=== PATIENT | male | born 1965 | race Caucasian/White ===

== ENCOUNTER 2016-09-28 11:10 | Day surgery (SDC) | payer MEDICARE, OTHER ==
[2016-09-25 16:12] VITALS: BMI 21.9
[~2016-09-28 11:10] MED LIST: DEXAMETHASONE SOD PHOSPHATE 10 MG/ML 1 ML VIAL IV ONE; HYDROmorphone 1 MG/ML 1 ML SYRINGE IVP PRN; LACTATED RINGERS 1,000 ML IV SCH; MIDAZOLAM 2 MG/2 ML VIAL IV PRN; ONDANSETRON 4 MG/2 ML VIAL IVP ONE; SCOPOLAMINE 1.5MG/72HR PATCH TRANSDERM ONE; ceFAZolin 2 GM in SODIUM CHLORIDE 0.9% 100 ML IVPB ONE
[2016-09-28] MEDS ORDERED: LIDOCAINE 1% 20 ML VIAL (10MG/ML) FOR IV START INTRADERMA ONE (12:09)
[2016-09-28] MEDS ORDERED: PROPOFOL 10 MG/ML 20 ML VIAL IV ONE (12:16)
[2016-09-28] MEDS ORDERED: MIDAZOLAM 2 MG/2 ML VIAL ONE (12:16)
[2016-09-28] MEDS ORDERED: fentaNYL (PF) 50 MCG/ML 2 ML AMP ONE (12:16)
[2016-09-28] MEDS ORDERED: SENNOSIDES-DOCUSATE SODIUM 1 EACH TAB PO PRN (12:33)
[2016-09-28] MEDS ORDERED: HYDROmorphone 1 MG/ML 1 ML SYRINGE IVP PRN ×2 (12:33)
[2016-09-28] MEDS ORDERED: HYDROcodone/APAP 5-325MG 1 EACH TAB PO PRN (12:33)
[2016-09-28] MEDS ORDERED: diphenhydrAMINE 25 MG CAP PO PRN (12:33)
[2016-09-28] MEDS ORDERED: LACTATED RINGERS 1,000 ML IV ONE (13:36)
--- NOTE | 2016-09-28 13:54 | FL ---
EXAMINATION TYPE: FL guidance operating room, XR foot limited LT DATE OF EXAM: 09/28/2016 1:43 PM CLINICAL HISTORY: Left foot surgery first toe TECHNIQUE: Fluoroscopy. COMPARISON: None. FINDINGS: Fluoroscopic guidance was provided during open reduction internal fixation procedure perfo rmed by Dr. Mccullough. A total of 7 seconds of fluoroscopic time was utilized during the procedure an d 2 spot intraoperative images are acquired. The 2 intraoperative views acquired show placement of fixating nail and volar fixating plate at first metatarsophalangeal joint where there is joint space loss and marginal spurring present. IMPRESSION: As Above.
[2016-09-28 14:06] VITALS: TEMP 98.1
--- NOTE | 2016-09-28 14:11 | P.OP ---
Date of Procedure: 09/28/16 Preoperative Diagnosis: Left first MTP arthritis Postoperative Diagnosis: Left first MTP arthritis, end-stage Procedure(s) Performed: Left first MTP arthrodesis Implants: Michela Variax Plate and 2.7 lag screw Anesthesia: spinal Surgeon: Julian Mccullough Estimated Blood Loss (ml): 10 IV fluids (ml): 1,000 Condition: stable Disposition: PACU Indications for Procedure: The patient is a 51-year-old male with a long-standing history of left first MTP arthritis. He has failed extensive nonsurgical treatment including activity modification, anti-inflammatory medications, intra-articular injections , orthotics, and shoe modification. He presented to the office and had x-rays which showed end-stage arthritis of the first MTP joint. He had pain throughout his limited arc of motion at the first MTP joint. We discussed surgery including cheilectomy versus fusion. Due to the patient's end-stage arthritis as well as pain throughout his arc of motion a recommended a first MTP arthrodesis. We also discussed continued nonoperative treatment but he declined saying he had been through a long course of over a year of nonoperative management. The patient is a former smoker but has quit. Doesn't potential risks and Patient's of surgery including but not limited to risk of anesthesia, risk of superficial infection, risk of deep infection, risk of damage to local sensory nerves resulting attempt or permanent numbness, risk of intraoperative fracture, risk of postoperative fracture, risk of symptomatically hardware, risk of nonunion of the arthrodesis site, risk of malunion of the arthrodesis site, risk of difficulty with shoewear, risk of symptomatically hardware, risk of adjacent joint arthritis, risk of delayed wound healing, risk of wound necrosis, risk of necrosis the toe requiring amputation, generalized to satisfaction with surgery, and possibly loss of limb or life. The patient understands these risks and provided his verbal and written consent to go forward with surgery. He also understands that he is at a higher risk of having Occasional if he starts to smoke again. Description of Procedure: I met the patient in preoperative holding and the correct left leg was marked with my initials. All the patient's questions were answered and his consent was reviewed. The patient was then brought back to the operating room upon entering the operating room a spinal anesthetic was administered. The patient was then transferred to the operating room table and positioned supine. All bony prominences were well-padded. A tourniquet was applied to the proximal aspect the left thigh. Addicks. A bone foam ramp was placed under his left buttock internally rotating the leg. The patient's leg was then prepped and draped in the standard sterile fashion. Prior to starting surgery timeout was performed identifying the correct patient, operative extremity, and procedure. The patient's leg was then elevated, exsanguinated with an Esmarch bandage and the tourniquet was inflated to 250 mmHg. A longitudinal incision was made over the dorsal aspect of the first MTP joint. Dissection was carried down carefully through subcutaneous tissue to the sheath of the EHL tendon. The EHL tendon sheath was incised and the EHL tendon was retracted laterally. The capsule was then incised longitudinally in line with the skin incision. On entering the joint there were large osteophytes off of the dorsal first metatarsal and base of the proximal phalanx. There were multiple loose bodies within the joint. The joint had full-thickness cartilage loss both on the first metatarsal head and proximal phalanx base. A Rongeur was used to carefully contour the metatarsal head and base of the proximal phalanx. A K wire was then placed down the central axis the first metatarsal and a cup reamer was used to remove the remaining articular cartilage. A curet was used to remove any remaining cartilage and the K wire was then used to perforate the subchondral plate to help facilitate fusion. The K wire was then placed down the central access of the proximal phalanx. A cone-shaped reamer was then used to remove the remaining articular cartilage. A curet was used to completely denude all remaining cartilage in the K wire was used to perforate the subchondral bone to facilitate fusion. The wound was then copiously irrigated. I then positioned the joint for fusion in slight valgus and dorsiflexion. Once the joint was pinned in place I used a flat plate to make sure that the toe was sitting just off the plate, its rotation was at neutral, and it was not impinging on the second toe. C-arm was then brought in to verify position of the pinned first MTP joint. Once I was happy with the joint I placed a 2.7 mm lag screw across the joint. A 2.7 drill bit was used to create a gliding hole in the medial head of the first metatarsal and a 2.0 drill bit was used to create a threaded hole in the base of the proximal phalanx. A fully threaded 2.7 mm screw was placed across the joint generating excellent compression. The K wire was removed and the joint was held solid. Fluoroscopy showed the screw neck supple position. A 6-hole plate was then placed over the dorsal aspect of the first MTP joint. Two 2.7 screws were placed in the base the proximal phalanx and three 2.7 screws were placed in the first metatarsal. C-arm was then brought in to take final x-rays shots. Hardware appeared to be in acceptable position as well as the arthrodesis site. The wound was again copiously irrigated. The capsule was closed using a running 0 Vicryl stitch. The deep subcu was reapproximated using 2-0 Vicryl. The skin was closed using interrupted 3-0 nylon horizontal mattress stitches. The tourniquet was let down for total tourniquet time 60 minutes. The toe pinked up. After the incision was closer verified that all instrument sponge and sharp counts were correct. [place] stretchy Steri-Strips were placed between the stitches. A sterile dressing consisting of Betadine soaked Adaptic 4 x 4's and web roll was applied. The drapes were then taken down and a bulky Maloney type splint was placed. The patient was then transferred from the operating table to the [facility] and brought to PACU of entire the procedure well. Plan: The patient can discharge home as an outpatient. He is to remain strictly nonweightbearing on his operative leg in a bulky Maloney splint. He is to keep his splint clean and dry. He'll follow-up in the office in 2 weeks. A pin for [place] for pain and aspirin for DVT prophylaxis.
[2016-09-28 18:40] VITALS: RESP 18
[2016-09-28 18:41] VITALS: BP 122/72; PULSE 63
== END 2016-09-28 20:00 | disposition home or self-care (01) ==
LOC: OR 11:10
PROVIDERS: ATTEND Orthopaedic Surgery
DX: M13.872 Other specified arthritis, left ankle and foot (principal); M25.775 Osteophyte, left foot; M24.08 Loose body, other site; I10 Essential (primary) hypertension; F32.9 Major depressive disorder, single episode, unspecified; J44.9 Chronic obstructive pulmonary disease, unspecified; J43.9 Emphysema, unspecified; Z87.891 Personal history of nicotine dependence; M79.7 Fibromyalgia; Z79.899 Other long term (current) drug therapy
CPT/HCPCS: 73620; 28750; J2250; J1100; J0690; J2405; J3010; J2704

== ENCOUNTER 2017-01-01 12:19 | Emergency (ER) | payer MEDICARE, OTHER ==
[2017-01-01] MEDS ORDERED: ONDANSETRON 4 MG/2 ML VIAL IVP STA (12:45)
[2017-01-01] MEDS ORDERED: SODIUM CHLORIDE 0.9% 1,000 ML IV STA (12:45)
[2017-01-01] MEDS ORDERED: SODIUM CHLORIDE 0.9% 500 ML IV STA (12:45)
[2017-01-01] MEDS ORDERED: FAMOTIDINE 20 MG/2 ML VIAL IV STA (12:45)
--- NOTE | 2017-01-01 12:47 | ED ---
Nausea/Vomiting/Diarrhea HPI - General Chief complaint: Nausea/Vomiting/Diarrhea Stated complaint: Vomiting, Fever Time Seen by Provider: 01/01/17 12:33 Source: patient, RN notes reviewed Mode of arrival: wheelchair Limitations: no limitations - History of Present Illness Initial comments: 51-year-old male presents emergency Department chief complaint of nausea vomiting. Patient states it started this morning after eating some raspberries. Patient states that he has not felt well over the last couple days states that his stomach has been upset. 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 Patient states she stepped in a while ago. Patient denies chest pain , shortness breath, fever, chills. Patient denies any diarrhea or constipation. Denies any dysuria or hematuria. Patient had no contacts with some symptoms. - Related Data Home Medications Medication Instructions Recorded Confirmed Atorvastatin [Lipitor] 10 mg PO DAILY 07/09/16 01/01/17 HYDROcodone/APAP 10-325MG [Elmer 1 tab PO 5XD PRN 07/09/16 01/01/17 10-325] Losartan [Cozaar] 25 mg PO DAILY 07/09/16 01/01/17 Metoprolol Succinate [Toprol XL] 25 mg PO DAILY 07/09/16 01/01/17 Naproxen 500 mg PO Q12HR PRN 09/25/16 01/01/17 Aclidinium Carmel [Tudorza 1 puff PO RT-BID 01/01/17 01/01/17 Pressair] Hydrochlorothiazide [Hydrodiuril] 25 mg PO DAILY 01/01/17 01/01/17 Sennosides-Docusate Sodium 1 tab PO DAILY 01/01/17 01/01/17 [Senokot-S] Tiotropium Carmel [Spiriva] 1 cap INHALATION RT-DAILY 01/01/17 01/01/17 amLODIPine BESYLATE [Norvasc] 5 mg PO DAILY 01/01/17 01/01/17 Allergies Allergy/AdvReac Type Severity Reaction Status Date / Time No Known Allergies Allergy Verified 01/01/17 12:31 Review of Systems ROS Statement: Those systems with pertinent positive or pertinent negative responses have been documented in the HPI. ROS Other: All systems not noted in ROS Statement are negative. Past Medical History Past Medical History: COPD, Hearing Disorder / Deafness, Hypertension, Musculoskeletal Disorder, Osteoarthritis (OA) Additional Past Medical History / Comment(s): emphysema, 3 spont pneumo's; ulcer History of Any Multi-Drug Resistant Organisms: None Reported Past Surgical History: Orthopedic Surgery, Tonsillectomy Additional Past Surgical History / Comment(s): RIGHT FOOT ,LEFT ARM Past Anesthesia/Blood Transfusion Reactions: No Reported Reaction Past Psychological History: No Psychological Hx Reported Smoking Status: Current some day smoker Past Alcohol Use History: None Reported Additional Past Alcohol Use History / Comment(s): STARTED SMOKING AT 19 QUIT 2016 SMOKED 1PPD Past Drug Use History: None Reported Additional Drug Use History / Comment(s): OCCASIONAL USE,HAS CARD - Past Family History Father Family Medical History: Cancer Sister(s) Family Medical History: Cancer Additional Family Medical History / Comment(s): LUNG CANCER General Exam Limitations: no limitations General appearance: alert, in no apparent distress Head exam: Present: atraumatic, normocephalic, normal inspection Neck exam: Present: normal inspection, full ROM. Absent: tenderness, meningismus, lymphadenopathy Respiratory exam: Present: normal lung sounds bilaterally. Absent: respiratory distress, wheezes, rales, rhonchi, stridor Cardiovascular Exam: Present: regular rate, normal rhythm, normal heart sounds. Absent: systolic murmur, diastolic murmur, rubs, gallop, clicks GI/Abdominal exam: Present: soft, tenderness (Mild diffuse), normal bowel sounds. Absent: distended, guarding, rebound, rigid Back exam: Absent: CVA tenderness (R), CVA tenderness (L) Course Vital Signs 01/01/17 01/01/17 01/01/17 12:27 13:10 13:58 Temperature 98.3 F 98.4 F Pulse Rate 57 L 52 L 56 L Respiratory 18 18 16 Rate Blood Pressure 184/94 185/86 168/83 O2 Sat by Pulse 100 94 L 94 L Oximetry 01/01/17 14:28 Temperature Pulse Rate 78 Respiratory 18 Rate Blood Pressure 205/97 O2 Sat by Pulse 96 Oximetry Medical Decision Making - Medical Decision Making 51-year-old male present emergency from for nausea vomiting. Patient follow-up within normal. Patient's is slightly improved after Zofran but will be given additional Reglan. Patient will be discharged with Zofran at home. Patient also has a viral GI illness. Patient was also given his blood pressure medication as he has not taken this morning and is hypertensive. - Lab Data Result diagrams: 01/01/17 13:00 01/01/17 13:00 Lab Results 01/01/17 01/01/17 01/01/17 Range/Units 13:00 13:00 14:03 WBC 10.3 (3.8-10.6) k/uL RBC 4.48 (4.30-5.90) m/uL Hgb 14.4 (13.0-17.5) gm/dL Hct 43.9 (39.0-53.0) % MCV 98.0 (80.0-100.0) fL MCH 32.1 (25.0-35.0) pg MCHC 32.8 (31.0-37.0) g/dL RDW 12.6 (11.5-15.5) % Plt Count 244 (150-450) k/uL Neutrophils % 87 % Lymphocytes % 10 % Monocytes % 2 % Eosinophils % 0 % Basophils % 0 % Neutrophils # 9.0 H (1.3-7.7) k/uL Lymphocytes # 1.0 (1.0-4.8) k/uL Monocytes # 0.2 (0-1.0) k/uL Eosinophils # 0.0 (0-0.7) k/uL Basophils # 0.0 (0-0.2) k/uL Sodium 139 (137-145) mmol/L Potassium 4.6 (3.5-5.1) mmol/L Chloride 106 (98-107) mmol/L Carbon Dioxide 26 (22-30) mmol/L Anion Gap 7 mmol/L BUN 14 (9-20) mg/dL Creatinine 0.68 (0.66-1.25) mg/dL Est GFR (MDRD) Af Amer >60 (>60 ml/min/1.73 sqM) Est GFR (MDRD) Non-Af >60 (>60 ml/min/1.73 sqM) Glucose 113 H (74-99) mg/dL Calcium 9.6 (8.4-10.2) mg/dL Total Bilirubin 0.7 (0.2-1.3) mg/dL AST 17 (17-59) U/L ALT 24 (21-72) U/L Alkaline Phosphatase 75 (38-126) U/L Total Protein 7.3 (6.3-8.2) g/dL Albumin 4.2 (3.5-5.0) g/dL Amylase 57 (30-110) U/L Lipase 85 (23-300) U/L Urine Color Yellow Urine Appearance Cloudy (Clear) Urine pH 7.5 (5.0-8.0) Ur Specific Alpha 1.020 (1.001-1.035) Urine Protein Trace H (Negative) Urine Glucose (UA) Negative (Negative) Urine Ketones 1+ H (Negative) Urine Blood Negative (Negative) Urine Nitrite Negative (Negative) Urine Bilirubin Negative (Negative) Urine Urobilinogen <2.0 (<2.0) mg/dL Ur Leukocyte Esterase Negative (Negative) Urine WBC <1 (0-5) /hpf Urine Mucus Moderate H (None) /hpf Disposition Clinical Impression: Nausea & vomiting Disposition: HOME SELF-CARE Condition: Stable Instructions: Acute Nausea and Vomiting (ED) Additional Instructions: Please return to the Emergency Department if symptoms worsen or any other concerns. Time of Disposition: 14:52
[2017-01-01 13:32] LABS: Basophils % (A) 0 %; CH 32.4; CHCM 33.2; Eosinophils % (A) 0 %; HCT 43.9 % (39.0-53.0); HDW 2.18; HGB 14.4 gm/dL (13.0-17.5); Luc # (Auto) 0.09; Luc % (Auto) 1; Lymphocytes % (A) 10 %; MCH 32.1 pg (25.0-35.0); MCHC 32.8 g/dL (31.0-37.0); Mean Platelet Volume 8.4; Monocytes # (A) 0.2 k/uL (0-1.0); Monocytes % (A) 2 %; Neutrophils % (A) 87 %; RBC 4.48 m/uL (4.30-5.90); RDW 12.6 % (11.5-15.5); WBC 10.3 k/uL (3.8-10.6); WBC (Perox) 10.55
--- NOTE | 2017-01-01 13:33 | XR ---
EXAMINATION TYPE: XR KUB DATE OF EXAM: 01/01/2017 1:15 PM COMPARISON: NONE HISTORY: Pain TECHNIQUE: Single supine KUB image of the abdomen is obtained FINDINGS: Small bowel demonstrates no evidence for dilatation or air fluid levels. Gas and fecal material is seen in non-distended colon. No convincing evidence for pneumoperitoneum. No unusual calcifications. The lung bases are clear. The osseous structures are intact. IMPRESSION: 1. Overall nonobstructive bowel gas pattern.
[2017-01-01 13:41] LABS: ALT 24 U/L (21-72); AST 17 U/L (17-59); Alkaline Phosphatase 75 U/L (38-126); Amylase 57 U/L (30-110); Anion Gap 7 mmol/L; Blood Urea Nitrogen 14 mg/dL (9-20); Calcium 9.6 mg/dL (8.4-10.2); Carbon Dioxide 26 mmol/L (22-30); Chloride 106 mmol/L (98-107); Glucose 113 mg/dL (74-99); Non-African American GFR(MDRD) >60 (>60 ml/min/1.73 sqM); Potassium 4.6 mmol/L (3.5-5.1); Sodium 139 mmol/L (137-145); Total Bilirubin 0.7 mg/dL (0.2-1.3); Total Protein 7.3 g/dL (6.3-8.2)
[2017-01-01] MEDS ORDERED: METOPROLOL SUCCINATE (ER) 25 MG TAB.ER.24H PO STA (14:30)
[2017-01-01 14:34] LABS: Appearance,Urine Cloudy (Clear); Bilirubin,Urine Negative (Negative); Glucose,Urine (UA) Negative (Negative); Ketones,Urine 1+ (Negative); Leukocyte Esterase,Urine Negative (Negative); Mucus,Urine Moderate /hpf; Nitrite,Urine Negative (Negative); PH, Urine 7.5 (5.0-8.0); Particle Count 21388; Protein,Urine Trace (Negative); UA Billing (MACRO vs. MICRO) MICRO; Urobilinogen,Urine <2.0 mg/dL (<2.0); WBC,Urine <1 /hpf (0-5)
[2017-01-01] MEDS ORDERED: SODIUM CHLORIDE 0.9% 500 ML IV ONE (14:50)
[2017-01-01] MEDS ORDERED: METOCLOPRAMIDE 5 MG/ML 2 ML VIAL IVP STA (14:50)
[2017-01-01 15:27] VITALS: RESP 16
[2017-01-01 15:40] VITALS: BP 161/70; PULSE 65; TEMP 97.9
== END 2017-01-01 15:40 | disposition home or self-care (01) ==
LOC: EC 12:19
DX: R11.2 Nausea with vomiting, unspecified (principal); R19.7 Diarrhea, unspecified; R50.9 Fever, unspecified; I10 Essential (primary) hypertension; J44.9 Chronic obstructive pulmonary disease, unspecified; Z87.891 Personal history of nicotine dependence; Z79.899 Other long term (current) drug therapy
CPT/HCPCS: 36415; 80053; 82150; 83690; 85025; 81001; 74000; 99284; 96374; 96375 ×2; 96361 ×3; J2765; J2405

== ENCOUNTER → 2017-10-14 | Outpatient (CLI) | payer MEDICARE, OTHER ==
--- NOTE | 2017-10-14 13:33 | MR ---
EXAMINATION TYPE: MR shoulder RT wo con DATE OF EXAM: 10/14/2017 COMPARISON: NONE HISTORY: Right shoulder pain TECHNIQUE: Multiplanar, multisequence imaging of the right shoulder is performed without contrast. FINDINGS: Rotator Cuff: There is a 9 mm through thickness partial tear involving supraspinatus tendon near the insertion with greater involvement of the anterior fibers. There is intrasubstance signal near the insertion of the infraspinatus tendon. No retraction. Finding s compatible with tendinosis. Partial intrasubstance tear not excluded. No through thickness tear or retraction. Subscapularis tendon appears intact. Acromioclavicular Joint: Hypertrophic and degenerative arthropathy of the AC joint. No definite impin gement. Glenohumeral Joint: Glenohumeral ligaments are intact. No sizable joint effusion. Labrum: There is a tear of the anterior superior labrum. The appears to be evidence of a Javier compl ex. There is some redundancy of the middle glenohumeral ligament. Biceps Tendon: The long head of biceps is in normal location within bicipital groove. Bone marrow signal: Abnormal signal involving the head of the humerus compatible with benign cystic c hange likely related to chronic arthropathy. Other: There is a intramuscular lipoma involving the deltoid muscle anterolaterally measuring 0.7 x 1 .8 x 5.2 cm.. IMPRESSION: 1. Partial through thickness tear measuring 9 mm with a greater involvement of the anterior fibers melgoza praspinatus tendon at its insertion with no retraction. 2. Tendinosis infraspinatus tendon. 3. Intramuscular lipoma of the deltoid muscle measuring 0.7 x 1.8 x 5.2 cm. 4. There is a tear of the anterior superior labrum. The appears to be evidence of a [place] complex. T here is some redundancy of the middle glenohumeral ligament. Correlate clinically.
== END | disposition home or self-care (01) ==
LOC: RADMRIMAIN 12:30
PROVIDERS: ATTEND Orthopaedic Surgery
DX: M75.111 Incomplete rotator cuff tear or rupture of right shoulder, not specified as traumatic (principal); S43.401A Unspecified sprain of right shoulder joint, initial encounter; M75.81 Other shoulder lesions, right shoulder; D17.9 Benign lipomatous neoplasm, unspecified
CPT/HCPCS: 73030; 99204

== ENCOUNTER → 2019-05-26 | Outpatient (CLI) | payer MEDICARE ==
--- NOTE | 2019-05-26 09:46 | CT ---
EXAMINATION TYPE: CT abdomen pelvis w con DATE OF EXAM: 05/26/2019 COMPARISON: 07/09/2016 HISTORY: Unspecified abdominal pain CT DLP: 962 mGycm CONTRAST: CT scan of the abdomen and pelvis is performed with Oral Contrast and with IV Contrast, patient injec charito with 100 ml mL of Isovue 300. FINDINGS: LUNG BASES-: No visible nodule. No infiltrate. LIVER/GB: No calcified gallstones. No space occupying hepatic lesion. Biliary tree is of normal ca liber. PANCREAS: No inflammation. No distinct mass. SPLEEN: No splenic enlargement. No lesion seen. ADRENALS: No nodule. No thickening. KIDNEYS/BLADDER: No hydronephrosis. No nephrolithiasis. No distinct renal mass. Urinary bladder g rossly unremarkable. BOWEL: Normal appendix. Normal bowel caliber. No inflammation. GENITAL ORGANS: No gross abnormality. LYMPH NODES: No greater than 1cm abdominal or pelvic lymph nodes are appreciated. AORTA: No significant abnormality. OSSEOUS STRUCTURES: No significant abnormality is seen. OTHER: No significant additional abnormality is seen. IMPRESSION: 1. No distinct abnormality to account for the patient's symptoms.
== END | disposition home or self-care (01) ==
LOC: RADCTMAIN 07:35
PROVIDERS: ATTEND Internal Medicine Gastroenterology
DX: R10.9 Unspecified abdominal pain (principal)
CPT/HCPCS: 74177; Q9967

== ENCOUNTER → 2020-11-18 | Outpatient (CLI) | payer MEDICARE ==
[2020-11-19 01:06] LABS: African American GFR (CKD) 97.1 (60.0-200.0); Albumin 4.6 g/dL (3.80-4.90); Albumin/Globulin Ratio 2.09 (1.60-3.17); Anion Gap 8.3 mmol/L (4.00-12.00); Calcium 9.6 mg/dL (8.7-10.3); Carbon Dioxide 26.7 mmol/L (21.6-31.8); Chol/HDL Ratio 2.22; Globulin 2.2 g/dL (1.6-3.3); LDL Cholesterol,Calculated 65.6 mg/dL (0.0-131.0); Non-African American GFR(CKD) 83.8 (60.0-200.0); Total Bilirubin 0.5 mg/dL (0.2-1.2); Total Protein 6.8 g/dL (6.2-8.2); VLDL Calculation 12.4 mg/dL (5.00-40.00)
== END | disposition home or self-care (01) ==
LOC: LABWHC1 15:35
PROVIDERS: ATTEND Internal Medicine Clinical Cardiac Electrophysiology
DX: I10 Essential (primary) hypertension (principal); E78.5 Hyperlipidemia, unspecified
CPT/HCPCS: 36415; 80053; 80061; 84443

== ENCOUNTER → 2021-05-03 | Outpatient (CLI) | payer MEDICARE ==
--- NOTE | 2021-05-04 11:50 | CTL ---
EXAMINATION TYPE: CT Low Dose Lung DATE OF EXAM ORDERED: 05/03/2021 HISTORY: History of smoking and is quitting for good. Lung cancer screening CT DLP: 81.[address] CTDI: 2.0 mGy Automated exposure control for dose reduction was used. SCREENING VISIT: Initial COMPARISON: None TECHNIQUE: Low dose computed tomography scan was performed through the chest at 1 mm thick sections a nd reconstructed images in the coronal plane at [address] DIAGNOSTIC QUALITY: Satisfactory FINDINGS: LUNG NODULES: Present, detailed below: Posterior lung apex scarring may be present. There is a 0.6 cm nodule may be at the right apex. Series 4 image 27. LUNGS COPD: Severity: Mild Fibrosis: Severity: None Lymph nodes: None Other findings: None RIGHT PLEURAL SPACE: Effusion: None Calcification: None Thickening: None Pneumothorax: None LEFT PLEURAL SPACE: Effusion: None Calcification: None Thickening: None Pneumothorax: None HEART: Heart Size: Normal Coronary calcification: Minimal Pericardial effusion: None OTHER FINDINGS: Upper abdomen: Normal Bony thorax: Normal Supraclavicular region: Normal Other: Ascending thoracic aorta at the level the main pulmonary artery measures 4.0 cm. The main pul monary artery at the bifurcation measures 2.9 cm. IMPRESSION: 1. 0.6 cm nodule right apex may be related to the suspected scarring at the lung apices. Follow-up CT chest in 6 months is recommended. FOLLOW UP CT CHEST RECOMMENDATION: Yes, CT chest [address] LUNG RAD: Lung-Rad 3 Probably Benign
== END | disposition home or self-care (01) ==
LOC: RADCTMAIN 13:25
PROVIDERS: ATTEND Family Medicine
DX: R91.1 Solitary pulmonary nodule (principal); Z87.891 Personal history of nicotine dependence
CPT/HCPCS: 71271

== ENCOUNTER → 2022-01-24 | Outpatient (CLI) | payer MEDICARE ==
--- NOTE | 2022-01-25 07:08 | CTL ---
EXAMINATION TYPE: CT Low Dose Lung DATE OF EXAM ORDERED: 01/24/2022 HISTORY: Long-term tobacco use. Lung cancer screening CT DLP: 598.[address] CTDI: 7.20 mGy Automated exposure control for dose reduction was used. SCREENING VISIT: First step to baseline COMPARISON: Prior study 2020 TECHNIQUE: Low dose computed tomography scan was performed through the chest at 1 mm thick sections a nd reconstructed images in multiple planes at 1 mm and [address] DIAGNOSTIC QUALITY: Satisfactory FINDINGS: LUNG NODULES: Present, detailed below: Scattered small nodules redemonstrated. For reference there is stable 4 x 3 mm peripheral anterior left upper lung nodule axial image 76 and peripheral 5 x 3 mm right upper lobe nodule axial image 79. Multiple similar size and smaller nodules in the bilateral upper lungs are present, some are calcified. No new or enlarging greater than 5 mm noncalcified pulmonary nodules. LUNGS: COPD: Severity: [id number] Fibrosis: Severity: Moderate Biapical redemonstrated Lymph nodes: No new greater than 1 cm Other findings: None RIGHT PLEURAL SPACE: Effusion: None Calcification: None Thickening: None Pneumothorax: None LEFT PLEURAL SPACE: Effusion: None Calcification: None Thickening: None Pneumothorax: None HEART: Heart Size: Normal Coronary Calcification: Mild to moderate Pericardial Effusion: None OTHER FINDINGS: Upper abdomen: None Bony thorax: None Supraclavicular region: None Other: There is 4.2 cm ascending aortic aneurysm axial image 36 series 12. Prominent but subcentimete r bilateral axillary lymph nodes redemonstrated. IMPRESSION: Mild/moderate emphysematous change with scattered stable small predominantly upper lung n odules. CT LUNG RAD AND CT CHEST RECOMMENDATION: Lung-Rad 2 Benign Appearance or Behavior: Continue annual sc reening with LDCT in 12 months. S Modifier (other clinically significant findings): S There is 4.2 cm ascending thoracic aortic aneurysm noted.
== END | disposition home or self-care (01) ==
LOC: RADCTMAIN 18:01
PROVIDERS: ATTEND Family Medicine
DX: Z12.2 Encounter for screening for malignant neoplasm of respiratory organs (principal); Z87.891 Personal history of nicotine dependence
CPT/HCPCS: 71271

== ENCOUNTER 2024-08-08 23:06 | Emergency (ER) | payer MEDICARE ==
[2024-08-08 23:13] VITALS: PULSE 88; TEMP 97.6
[2024-08-09] MEDS: BACITRACIN OINT 1 EACH PACKET TOPICAL ONE (00:27)
[2024-08-09] MEDS: KETOROLAC 15 MG/ML 1 ML VIAL IM STA (00:27)
[2024-08-09] MEDS: HYDROcodone/APAP 5-325MG 1 EACH TAB PO STA ×2 (00:29→02:25)
[2024-08-09] MEDS: PROPARACAINE 0.5% OPHTH DROPS 15 ML BTL BOTH EYES STA (01:57)
[2024-08-09] MEDS: FLUORESCEIN STRIPS 1 MG STRIP BOTH EYES ONE (01:58)
[2024-08-09 02:12] VITALS: BP 159/106; RESP 19
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
[2024-08-09] MEDS: traMADol 50 MG STARTER PACK 3 TAB BTL PO STA (02:26)
[2024-08-09] MEDS: ERYTHROMYCIN 5 MG/GM OPHTH OINT 1 GM TUBE BOTH EYES STA (02:30)
== END 2024-08-09 02:35 | disposition home or self-care (01) ==
LOC: EC 23:06
DX: T23.161A Burn of first degree of back of right hand, initial encounter (principal); T20.14XA Burn of first degree of nose (septum), initial encounter; T20.17XA Burn of first degree of neck, initial encounter; T31.0 Burns involving less than 10% of body surface; F17.200 Nicotine dependence, unspecified, uncomplicated; X08.8XXA Exposure to other specified smoke, fire and flames, initial encounter
CPT/HCPCS: 16000; 99283; 96372; J1885

== ENCOUNTER 2024-11-27 02:01 | Emergency (ER) | payer MEDICARE ==
[2024-11-27 02:07] VITALS: TEMP 97.4
[2024-11-27] MEDS: KETOROLAC 15 MG/ML 1 ML VIAL IVP STA (02:24)
[2024-11-27] MEDS: LORazepam 2 MG/ML INJ IV STA (02:26)
--- NOTE | 2024-11-27 03:07 | ED ---
Upper Extremity HPI - General Chief Complaint: Extremity Injury, Upper Stated Complaint: R Shoulder Pain Time Seen by Provider: 11/27/24 02:09 Source: patient Mode of arrival: ambulatory - History of Present Illness Initial Comments: 59-year-old male presenting with chief complaint of right shoulder pain. Patient has history of shoulder pain. He denies any new injury or trauma. He reports that he has not followed with an orthopedic doctor in several years as he disagreed with the last one that he saw. He takes [place] at home regularly for his pain but states that today they were not cutting it. He also reports anxiety. He reports that he has had multiple stressful life events recently such as the of his best friend and the of his dog. He is having some difficulty breathing tonight. No chest pain. No lower extremity swelling. No vomiting or abdominal pain. He does admit to some nausea. Patient is a smoker, states that he smokes between 2 and 5 cigarettes/day. - Related Data Home Medications Medication Instructions Recorded Confirmed Atorvastatin [Lipitor] 10 mg PO DAILY 07/09/16 01/01/17 HYDROcodone/APAP 10-325MG [[place] 1 tab PO 5XD PRN 07/09/16 01/01/17 10-325] Losartan [Cozaar] 25 mg PO DAILY 07/09/16 01/01/17 Metoprolol Succinate [Toprol XL] 25 mg PO DAILY 07/09/16 01/01/17 Naproxen 500 mg PO Q12HR PRN 09/25/16 01/01/17 Aclidinium [place] [Tudorza 1 puff PO RT-BID 01/01/17 01/01/17 Pressair] Sennosides-Docusate Sodium 1 tab PO DAILY 01/01/17 01/01/17 [Senokot-S] Tiotropium [place] [Spiriva] 1 cap INHALATION RT-DAILY 01/01/17 01/01/17 amLODIPine BESYLATE [Norvasc] 5 mg PO DAILY 01/01/17 01/01/17 hydroCHLOROthiazide [Hydrodiuril] 25 mg PO DAILY 01/01/17 01/01/17 Previous Rx's Medication Instructions Recorded Erythromycin Ophth Oint (1 gm) 1 applic BOTH EYES QID 7 Days #2 08/09/24 [Ilotycin Ophth Oint (1 gm)] gram Allergies Allergy/AdvReac Type Severity Reaction Status Date / Time No Known Allergies Allergy Verified 11/27/24 02:07 Review of Systems ROS Statement: Those systems with pertinent positive or pertinent negative responses have been documented in the HPI. ROS Other: All systems not noted in ROS Statement are negative. Past Medical History Past Medical History: COPD, Hearing Disorder / Deafness, Hypertension, Musculoskeletal Disorder, Osteoarthritis (OA) Additional Past Medical History / Comment(s): emphysema, 3 spont pneumo's; ulcer History of Any Multi-Drug Resistant Organisms: None Reported Past Surgical History: Orthopedic Surgery, Tonsillectomy Additional Past Surgical History / Comment(s): RIGHT FOOT ,LEFT ARM Past Anesthesia/Blood Transfusion Reactions: No Reported Reaction Past Psychological History: No Psychological Hx Reported Smoking Status: Current every day smoker Past Alcohol Use History: None Reported Past Drug Use History: None Reported - Past Family History Father Family Medical History: Cancer Sister(s) Family Medical History: Cancer Additional Family Medical History / Comment(s): LUNG CANCER General Exam Limitations: no limitations General appearance: alert, in no apparent distress Head exam: Present: atraumatic, normocephalic, normal inspection Eye exam: Present: normal appearance, EOMI Neck exam: Present: normal inspection. Absent: meningismus Respiratory exam: Present: normal lung sounds bilaterally. Absent: respiratory distress, wheezes, rales, rhonchi, stridor Cardiovascular Exam: Present: regular rate, normal rhythm, normal heart sounds. Absent: systolic murmur, diastolic murmur, rubs, gallop, clicks Right Shoulder Exam: Present: normal inspection, tenderness. Absent: full ROM, swelling, deformity Neurological exam: Present: alert, oriented X3 Psychiatric exam: Present: normal affect, normal mood Skin exam: Present: warm, dry, normal color Course Vital Signs 11/27/24 11/27/24 02:02 03:59 Temperature 97.4 F L Pulse Rate 65 90 Respiratory 18 17 Rate Blood Pressure 151/95 137/97 O2 Sat by Pulse 100 98 Oximetry Medical Decision Making - Medical Decision Making Was pt. sent in by a medical professional or institution (, PA, SENIOR RESEARCH PROJECT MANAGER, urgent care, hospital, or detention...) When possible be specific @ -No Did you speak to anyone other than the patient for history (EMS, parent, family, police, friend...)? What history was obtained from this source @ -Daughter Did you review nursing and triage notes (agree or disagree)? Why? @ -I reviewed and agree with nursing and triage notes Were old charts reviewed (outside hosp., previous admission, EMS record, old EKG, old radiological studies, urgent care reports/EKG's, detention records)? Report findings @ -No old charts were reviewed Differential Diagnosis (chest pain, altered mental status, abdominal pain women, abdominal pain men, vaginal bleeding, weakness, fever, dyspnea, syncope, headache, dizziness, GI bleed, back pain, seizure, CVA, palpatations, mental health, musculoskeletal)? @ -Differential Musculoskeletal Muscular strain, contusion, ligament sprain, fracture, arthritis, septic arthritis, bursitis, cellulitis, muscle spasm, nerve compression, DVT, arterial occlusion, herpes zoster, electrolyte abnormality, tumor.... This is not meant to be in all inclusive list EKG interpreted by me (3pts min.). @ -EKG shows sinus bradycardia ventricular rate 59. [place] interval 141. QRS 98. QT 399. QTc 398 X-rays interpreted by me (1pt min.). @ -Chest x-ray and shoulder x-ray showed no acute findings CT interpreted by me (1pt min.). @ -None done U/S interpreted by me (1pt. min.). @ -None done What testing was considered but not performed or refused? (CT, X-rays, U/S, l abs)? Why? @ -None What meds were considered but not given or refused? Why? @ -None Did you discuss the management of the patient with other professionals (professionals i.e. , PA, SENIOR RESEARCH PROJECT MANAGER, lab, RT, psych nurse, geriatric social work professor, cyber defense forensics analyst, teacher, customs patrol officer, employment case manager)? Give summary @ -No Was smoking cessation discussed for >3mins.? @ -No Was critical care preformed (if so, how long)? @ -No Were there social determinants of health that impacted care today? How? (Homelessness, low income, unemployed, alcoholism, drug addiction, transportation, low edu. Level, literacy, decrease access to med. care, nursing home, rehab)? @ -No Was there de-escalation of care discussed even if they declined (Discuss DNR or withdrawal of care, Hospice)? DNR status @ -No What co-morbidities impacted this encounter? (DM, HTN, Smoking, COPD, CAD, Cancer, CVA, ARF, Chemo, Hep., AIDS, mental health diagnosis, sleep apnea, morbid obesity)? @ -None Was patient admitted / discharged? Hospital course, mention meds given and route, prescriptions, significant lab abnormalities, going to OR and other pertinent info. @ -59-year-old male presenting with chief complaint of right shoulder pain. Patient has had chronic shoulder pain for years reports that this feels like a flareup of his chronic pain. Patient is also reporting some anxiety. He has had several stressful life events recently causing him to have a panic attack with some difficulty breathing. History and physical examination are conducted. Heart and lungs are clear to auscultation. Patient is having no chest pain. Patient has increased pain with moving his arm. Neurovascularly intact. EKG shows sinus bradycardia with no acute ischemic findings. No acute process seen on chest x-ray or shoulder x-ray. After Ativan and Toradol patient reports that he feels much better. Educated on today's findings and supportive management at home. Follow-up with orthopedics. Follow-up with PCP. Report back to ER with any new or worsening symptoms. Discussed return parameters and answered all questions. Patient conveyed verbal understanding and agreed to the plan. I discussed this case in detail with my attending Dr. Barkley Undiagnosed new problem with uncertain prognosis? @ -No Drug Therapy requiring intensive monitoring for toxicity (Heparin, Nitro, Insulin, Cardizem)? @ -No Were any procedures done? @ -No Diagnosis/symptom? @ -Shoulder pain Acute, or Chronic, or Acute on Chronic? @ -Acute on chronic Uncomplicated (without systemic symptoms) or Complicated (systemic symptoms)? @ -Uncomplicated Side effects of treatment? @ -No Exacerbation, Progression, or Severe Exacerbation? @ -No Poses a threat to life or bodily function? How? (Chest pain, [place], [place], pneumonia, PE, COPD, DKA, ARF, appy, cholecystitis, CVA, Diverticulitis, Homicidal, Suicidal, threat to staff... and all critical care pts) @ -Unlikely Diagnosis/symptom? @Panic attack Acute, or Chronic, or Acute on Chronic? @Acute Uncomplicated (without systemic symptoms) or Complicated (systemic symptoms)? @Uncomplicated Side effects of treatment? @None Exacerbation, Progression, or Severe Exacerbation] @No Poses a threat to life or bodily function? @Unlikely - Lab Data Lab Results 11/27/24 Range/Units 02:29 Influenza Type A (PCR) Not Detected (Not Detectd) Influenza Type B (PCR) Not Detected (Not Detectd) RSV (PCR) Not Detected (Not Detectd) SARS-CoV-2 (PCR) Not Detected (Not Detectd) Disposition Clinical Impression: Shoulder pain, Anxiety Disposition: HOME SELF-CARE Condition: Good Instructions (If sedation given, give patient instructions): Anxiety (ED), Shoulder Pain (ED) Additional Instructions: Follow-up with PCP and orthopedics. Report back to ER with any new or worsening symptoms. Is patient prescribed a controlled substance at d/c from ED?: No Referrals: None,Stated [Primary Care Provider] - 1-2 days Christian Price MD [STAFF PHYSICIAN] - 1-2 days Forms: Area PCPs Time of Disposition: 03:47
[2024-11-27 03:17] LABS: Influenza A Not Detected (Not Detectd); Influenza B Not Detected (Not Detectd); RSV Not Detected (Not Detectd)
[2024-11-27 04:00] VITALS: BP 137/97; PULSE 90; RESP 17
--- NOTE | 2024-11-27 04:25 | XR ---
EXAM: XR Right Shoulder Complete, 2 or More Views CLINICAL HISTORY: ITS.REASON XR Reason: pain TECHNIQUE: Two or more views of the right shoulder. COMPARISON: No relevant prior studies available. FINDINGS: Bones/joints: Mild degenerative changes are seen at the acromioclavicular and glenohumeral joints. No acute fracture. No dislocation. Soft tissues: Unremarkable. IMPRESSION: No acute findings in the right shoulder.
--- NOTE | 2024-11-27 04:25 | XR ---
EXAM: XR Chest, 2 Views CLINICAL HISTORY: ITS.REASON XR Reason: SOB TECHNIQUE: Frontal and lateral views of the chest. COMPARISON: No relevant prior studies available. FINDINGS: Lungs: Unremarkable. No consolidation. Pleural space: Unremarkable. No pneumothorax. Heart: Unremarkable. No cardiomegaly. Mediastinum: Unremarkable. Normal mediastinal contour. Bones/joints: Degenerative changes are seen in the spine. No acute fracture. Vasculature: Calcifications overlie the aorta. IMPRESSION: No acute findings in the chest.
== END 2024-11-27 04:00 | disposition home or self-care (01) ==
LOC: EC 02:01
DX: M25.511 Pain in right shoulder (principal); F41.9 Anxiety disorder, unspecified; F17.210 Nicotine dependence, cigarettes, uncomplicated
CPT/HCPCS: 93005; 87636; 73030; 71046; 99284; 96374; 96375; J2060; J1885

== ENCOUNTER 2025-03-13 21:18 | Emergency (ER) | payer MEDICARE ==
[2025-03-13 21:31] VITALS: RESP 18
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
[2025-03-13] MEDS: HYDROmorphone 1 MG/ML 1 ML SYRINGE IM STA (23:03)
--- NOTE | 2025-03-14 00:40 | XR ---
EXAM: XR Right Shoulder Complete, 2 or More Views CLINICAL HISTORY: ITS.REASON XR Reason: pain TECHNIQUE: Two or more views of the right shoulder. COMPARISON: No relevant prior studies available. FINDINGS: Bones/joints: No acute fracture. No dislocation. Mild osteoarthritis of the AC joint. Soft tissues: Unremarkable. IMPRESSION: No acute osseous findings.
[2025-03-14 00:42] VITALS: BP 129/83; PULSE 76; TEMP 98
== END 2025-03-14 00:42 | disposition home or self-care (01) ==
LOC: EC 21:18
DX: M25.511 Pain in right shoulder (principal); G89.29 Other chronic pain; F17.200 Nicotine dependence, unspecified, uncomplicated
CPT/HCPCS: 73030; 99283; 96372; J1171